=== PATIENT | male | born 2000 | race Caucasian/White ===

== ENCOUNTER 2020-07-11 09:13 | Emergency (ER) | payer BC, SELFPAY ==
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
[2020-07-11 09:25] VITALS: BP 124/76; PULSE 60; RESP 18; TEMP 36.4; O2SAT 100
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
[2020-07-11 10:18] VITALS: RESP 16
== END 2020-07-11 10:20 | disposition home or self-care (01) ==
PROVIDERS: Emergency Provider Emergency Medicine; PCP Emergency Medicine
DX: S06.0X0A Concussion without loss of consciousness, initial encounter (principal); V29.88XA Motorcycle rider (driver) (passenger) injured in other specified transport accidents, initial encounter
CPT/HCPCS: 70450; 99282; 99284

== ENCOUNTER 2022-11-08 21:45 | Emergency (ER) | payer OTHER, SELFPAY | END 2022-11-08 23:21 | disposition home or self-care (01) | PROVIDERS: Emergency Provider Emergency Medicine | DX: A08.4 Viral intestinal infection, unspecified (principal) | CPT/HCPCS: 96372; 99283; A9270; J2550 ==

== ENCOUNTER 2025-02-23 14:27 | Emergency (ER) | payer OTHER, SELFPAY ==
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
[2025-02-23 14:27] VITALS: BP 150/86; PULSE 95; RESP 16; TEMP 36.4; O2SAT 98
--- OUTSIDE RECORDS SUMMARY | 2025-02-23 14:32 | XMS_ITS | Encounter Summary ---
Author Organization [facility] Address [address] [place] [address] Care Team Providers Care Burr Bench Operator Name Role Phone Rupert Salgado MD Primary Care Provider Encounter Details Date Type Department Care Team (Late st Contact Info) Description 06/28/2024 eÓtica Message Enc [facility] [address] [address] Bozena Crane, [facility]- [address] [place] [address] Visit Follow Up Social History Tobacco Use Types Packs/Day Years Used Date Smoking Tobacco: Every Day Alcohol Use Standard Drinks/Week Comments Not Currently 0 (1 standard drink = 0.6 oz pur e alcohol) Sex and Gender Information Value Date Recorded Sex Assigned at Male 06/23/2024 12:45 AM CDT Legal Sex Male 3:55 PM CDT Gender Identity Not on file Sexual Orientation Not on file documented as of this encounter Plan of Treatment Not on file documented as of this encounter Visit Diagnoses Not on filedocumented in this encounter Care Teams Burr Bench Operator Relationship Specialty Start Date End Date Rupert Salgado MD [address] [place] [id number] PCP - General FAMILY PRACTICE 06/23/24 documented as of this encounter
--- OUTSIDE RECORDS SUMMARY | 2025-02-23 14:32 | XMS_ITS | Clinical Summary ---
Author Organization [facility] Address [address] [place] [address] Care Team Providers Care Hadoop Consultant Name Role Phone Geremias Marie MD Primary Care Provider [phone] Source Comments [facility],non-owned Affiliates and Associated Physician Practices is amultiple site organization consisting of ambulatory clinics and hospital sitesin [place], [place], [place] and [place]. This disclosure is being madepursuant to the Care Everywhere program and may not contain all information available regarding this patient. Last updated 17.[employer] [facility] Allergies No known active allergies Medications * Be aware that medications may not be up to date on this document. Alwaysverify current medications with the patient. acetaminophen-co deine (TYLENOL #3) 300-30 MG tablet Take 1 tablet by mouth every 4 hours 0 09/15/2017 Active Active Problems Problem Noted Date Diagnosed Date Closed nondisplaced fracture of body of left sca pula 09/19/2017 Fracture of transverse proce ss of thoracic vertebra, closed, initial encounter 09/19/2017 Social History Tobacco Use Types Packs/Day Years Used Date Smoking Tobacco: Never Assessed Sex and Gender Information Value Date Recorded Sex Assigned at Not on file Legal Sex Male 8:08 AM CDT Gender Identity Not on file Sexual Orientation Not on file Last Filed Vital Signs Vital Sign Reading Time Taken Comments Blood Pressure 106/70 09/19/2017 11:05 AM CDT Pulse - - Temperature - - Respiratory Rate - - Oxygen Saturation - - Inhaled Oxygen Concentration - - Weight 65.7 kg (144 lb 13.5 oz) 09/19/2017 1:42 PM CDT Height 177.5 cm (5' 9.88) 09/19/2017 1 1:05 AM CDT Body Mass Index 20.85 09/19/2017 11:05 AM CDT Plan of Treatment Health Maintenance Due Date Last Done Comments HIV SCREENING 10/27/2015 HPV VACCINE (1 - Male 3-dose series) 10/27/2015 HEPATITIS C SCREENING 10/22/2018 DTAP/TDAP/TD VACCINES (1 - Tdap) 10/27/2019 HEPATITIS B VACCINE (1 of 3 - 19+ 3-dose series) 10/27/2019 DEPRESSION SCREENING 03/21/2024 COVID-19 VACCINE (1 - 2024-2 6 season) 2024 INFLUENZA VACCINE (#1) 2024 ZOSTER VACCINE (1 of 2) 2050 HIB VACCINE Aged Out No longer eligi ble based on patient's age to complete this topic MENINGOCOCCAL (Group B) VACC INE SHARED DECISION-MAKING Aged Out No longer eligibl e based on patient's age to complete this topic MENINGOCOCCAL GROUPS A/C/Y/W VACCINE Aged Out No longer eligible b ased on patient's age to complete this topic PNEUMOCOCCAL VACCINE Aged Out No long er eligible based on patient's age to complete this topic Insurance MEDICAID - [place] Care Teams Hadoop Consultant Relationship Specialty Start Date End Date Geremias Marie MD [address] [place] [id number] PCP - General Family Medicine 09/19/17
--- OUTSIDE RECORDS SUMMARY | 2025-02-23 14:32 | XMS_ITS | Clinical Summary ---
Author Organization [facility] Address [address] [place] [address] Care Team Providers Care Strip Roller Name Role Phone Rupert Salgado MD Primary Care Provider Allergies No known active allergies Medications propranolol (INDERAL) 10 MG tablet Take 1 tablet (10 mg total) by mouth 2 (two) times daily. 09/11/2024 Active Active Problems Problem Noted Date Diagnosed Date Closed fracture of distal fibula 08/09/2024 Other closed fracture of dis henny end of left fibula with routine healing, subsequent encounter 06/28/2024 Encounters Date Type Department Care Team Description 01/18/2025 Orders Only [facility] [place] [id number] [place] [id number] Karson Zhang, from Last 3 Months Family History Medical History Relation Comments Early Father Arthritis Maternal Aunt 1 Heart Disease Maternal Aunt 2 Kidney Disease Maternal Aunt 2 Heart Disease Maternal Aunt 3 Hypertension Maternal Aunt 3 Heart Disease Maternal Grandfather Hypertension Maternal Grandfather Kidney Disease Maternal Grandfather Cancer Maternal Uncle 1 Heart Disease Maternal Uncle 2 Arthritis Mother Asthma Mother Cancer Mother Relation Status Comments Father Maternal Aunt 1 Maternal Aunt 2 Maternal Aunt 3 Maternal Grandfather Maternal Uncle 1 Maternal Uncle 2 Mother Social History Tobacco Use Types Packs/Day Years Used Date Smoking Tobacco: Every Day Tobacco Cessation:Ready to Q uit: Not Asked Alcohol Use Standard Drinks/Week Comments Yes 0 (1 standard drink = 0.6 oz pur e alcohol) Sex and Gender Information Value Date Recorded Sex Assigned at Male 06/23/2024 12:45 AM CDT Legal Sex Male 3:55 PM CDT Gender Identity Not on file Sexual Orientation Not on file Last Filed Vital Signs Vital Sign Reading Time Taken Comments Blood Pressure 166/85 06/23/2024 12:43 AM CDT Pulse 86 06/23/2024 12:43 AM CDT Temperature 36.6 C (97.8 F) 06/23/2024 12:43 AM CDT Respiratory Rate 17 06/23/2024 12:43 AM CDT Oxygen Saturation 100% 06/23/2024 12:43 AM CDT Inhaled Oxygen Concentration - - Weight 90.7 kg (200 lb) 09/17/2024 9:21 AM CDT Height 182.9 cm (6') 09/17/2024 9:21 AM CDT Body Mass Index 27.12 09/17/2024 9:21 AM CDT Plan of Treatment Health Maintenance Due Date Last Done Comments Annual Physical 10/27/2003 HPV Vaccines (1 - Male 3-dose series) 10/27/2015 Hepatitis C 2018 Pneumococcal Vaccine: Pediatrics (0 to 5 Years) and At-Risk Patients (6 to 49 Years) (1 of 2 - PCV) 10/27/2019 DTaP, Tdap and Td Vaccines (7 - Td or Tdap) 01/02/2022 01/03/2012, 10/29/2005, 04/18/2002, Additional history exists COVID-19 Vaccine ( season) 2024 03/20/2022, 07/11/2021, 01/23/2021, Additional history exists Influenza Adult (#1) 2024 01/26/2020, 02/19/2014, 02/06/2009, Additional history exists Hepatitis B Vaccines Completed 04/18/2002, 03/29/2001, 01/09/2001 Meningococcal Vaccine Completed 04/27/2018 Hepatitis A Vaccines Aged Out No long er eligible based on patient's age to complete this topic Meningococcal B Vaccine Aged Out No l onger eligible based on patient's age to complete this topic RSV Immunizations Under 20 Months Aged Out No longer eligible based on patient's age to complete this topic Insurance AETNA Care Teams Strip Roller Relationship Specialty [place] [address] [place] [address] [place] [address] PCP - General FAMILY PRACTICE 06/23/24
--- OUTSIDE RECORDS SUMMARY | 2025-02-23 14:32 | XMS_ITS | Clinical Summary ---
Author Organization [facility] [address] [facility] Address [address] [place] [address] Care Team Providers Care Wool Hat Flanger Name Role Phone No, Physician Primary Care Provider [phone] Allergies No known active allergies Medications No known medications Active Problems Problem Noted Date Diagnosed Date Closed fracture of first metatarsal bone 009 Surgical History Surgery Date Site/Laterality Comments WISDOM TOOTH EXTRACTION Medical History Medical History Date Comments No pertinent past medical history Family History Medical History Relation Name Comments Breast cancer Mother Relation Name Status Comments Mother Social History Tobacco Use Types Packs/Day Years Used Date Smoking Tobacco: Never Smokeless Tobacco: Former Sex and Gender Information Value Date Recorded Sex Assigned at Not on file Legal Sex 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:35 AM SWEEPER DRIVER Gender Identity Not on file Sexual Orientation Not on file Last Filed Vital Signs Vital Sign Reading Time Taken Comments Blood Pressure 106/72 03/09/2020 12:36 PM SWEEPER DRIVER Pulse 62 03/09/2020 12:36 PM SWEEPER DRIVER Temperature 36.9 C (98.5 F) 03/09/2020 12:36 PM SWEEPER DRIVER Respiratory Rate 16 03/09/2020 12:36 PM SWEEPER DRIVER Oxygen Saturation 97% 03/09/2020 12:36 PM SWEEPER DRIVER Inhaled Oxygen Concentration - - Weight 74.8 kg (165 lb) 03/09/2020 12:36 PM SWEEPER DRIVER Height 182.9 cm (6') 03/09/2020 12:36 PM SWEEPER DRIVER Body Mass Index 22.38 03/09/2020 12:36 PM SWEEPER DRIVER Plan of Treatment Not on file Care Teams Wool Hat Flanger Relationship Specialty Start Date End Date Malinda Physician PCP - General 03/08/20
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
--- NOTE | 2025-02-23 15:34 | PC.NURSE ---
1435 HARD C-COLLAR APPLIED AFTER ASSESSMENT OF PT ROLLING SIDE BY SIDE 1509 HARD C-COLLAR REMOVED BY PT AND PT WALKED TO BATHROOM STATING HE WAS READY TO GO
--- NOTE | 2025-02-23 15:36 | PC.NURSE ---
PT REFUSED TDAP STATED HE WAS ALLERGIC
[2025-02-23 15:46] VITALS: BP 140/72; PULSE 87; RESP 20; TEMP 36.7; O2SAT 98
== END 2025-02-23 15:48 | disposition home or self-care (01) ==
PROVIDERS: Emergency Provider Emergency Medicine; PCP Family Medicine
DX: S01.311A Laceration without foreign body of right ear, initial encounter (principal); S60.511A Abrasion of right hand, initial encounter; V49.88XA Car occupant (driver) (passenger) injured in other specified transport accidents, initial encounter
CPT/HCPCS: 12001; 70450; 72125; 99284; L0150